=== PATIENT | female | born 1975 | race Caucasian/White ===

== ENCOUNTER 2017-10-11 08:12 | Emergency (ER) | payer OTHER ==
[~2017-10-11] VITALS: Ht 160 cm; Wt 59.0 kg
[~2017-10-11 08:12] MED LIST: ONDA4TAB21 SL; aptiom PO
[2017-10-11 08:49] VITALS: BP 119/78
== END 2017-10-11 10:09 | disposition home or self-care (01) ==
LOC: ER 08:31
DX: N64.4 Mastodynia (principal); R56.9 Unspecified convulsions; Z90.49 Acquired absence of other specified parts of digestive tract; Z98.51 Tubal ligation status; Z98.890 Other specified postprocedural states
CPT/HCPCS: 81025; 93005; 99283

== ENCOUNTER 2017-11-07 15:37 | Inpatient (IN) | payer OTHER ==
[~2017-11-07] VITALS: Ht 160 cm; Wt 62.1 kg
[2017-11-07] MEDS ORDERED: ACETAMINOPHEN 325MG TABLET PO STA (16:57)
[2017-11-07] MEDS ORDERED: SODIUM CHLORIDE 0.9% 1000ML BAG (SEPSIS BOLUS) IV ONE (17:00)
[2017-11-07] MEDS ORDERED: ACETAMINOPHEN 650MG SUPP PR ONE (17:15)
[2017-11-07] MEDS ORDERED: LORAZEPAM 2MG/ML CPJ IV ONE ×2 (17:15→19:00)
[2017-11-07 17:49] LABS: HEMATOCRIT. 39.8 % (36.0-48.0); HEMOGLOBIN. 13.3 g/dL (12.0-16.0); MEAN CORPUSCULAR HEMOGLOBIN 31.6 pg (28.0-32.0); MEAN CORPUSCULAR VOLUME 94.3 fL (81.0-99.0); MEAN PLATELET VOLUME 9.3 fl (7.4-10.4); PLATELET 157 x1000/uL (130-400); RED BLOOD CELL COUNT 4.22 mill/uL (4.2-5.4); RED CELL DISTRIBUTION WIDTH 12.8 % (11.6-14.6)
[2017-11-07 17:50] LABS: CHLORIDE 105 mEq/L (98-107)
[2017-11-07 17:51] LABS: INR 1.1; PROTHROMBIN TIME 11.8 sec (9.4-11.6)
[2017-11-07 17:57] LABS: CARBON DIOXIDE 25 mEq/L (21-32)
[2017-11-07 18:13] LABS: PLATELET ESTIMATE NORMAL
[2017-11-07 18:16] LABS: HCG SCREEN NEGATIVE
[2017-11-07] MEDS ORDERED: LEVETIRACETAM 1,000 MG in SODIUM CHLORIDE 0.9% 100 ML IV NR (18:30)
[2017-11-07] MEDS ORDERED: CEFTRIAXONE 1 G PREMIX 50 ML IV ONE (19:45)
[2017-11-07] MEDS ORDERED: IBUPROFEN 400MG TABLET PO ONE (19:45)
[2017-11-07] MEDS ORDERED: PHENYTOIN SODIUM 1,000 MG in SODIUM CHLORIDE 0.9% 100 ML IV ONE (19:45)
[2017-11-07] MEDS ORDERED: OSELTAMIVIR 75MG CAPSULE PO ONE (20:00)
[2017-11-07 21:20] LABS: CLARITY URINE CLEAR (CLEAR); COLOR URINE YELLOW (YELLOW); KETONES URINE NEGATIVE (NEGATIVE); LEUKOCYTE ESTERASE URINE NEGATIVE (NEGATIVE); NITRITE URINE NEGATIVE (NEGATIVE); OCCULT BLOOD URINE NEGATIVE (NEGATIVE); PH URINE 6.5 (4.5-8.0); PROTEIN URINE NEGATIVE (NEGATIVE); SPECIFIC GRAVITY URINE 1.009 (1.005-1.030); UROBILINOGEN URINE 0.2 E.U./dL (0.2-1.0)
[2017-11-07 22:00] VITALS: BP 109/53
[2017-11-07] MEDS ORDERED: LORAZEPAM 2MG/ML CPJ IV PRN (23:30)
[2017-11-07] MEDS: ACETAMINOPHEN 325MG TABLET PO PRN (23:35)
[2017-11-07] MEDS ORDERED: ESLI200T PO (23:56)
[2017-11-07] MEDS ORDERED: ZONI100C45 PO (23:56)
[2017-11-07] MEDS ORDERED: LORA0.5T2 PO (23:56)
[2017-11-07] MEDS ORDERED: HYDR-4001 PO (23:56)
[2017-11-08] VITALS: BP_SYST 130; BP_SYST 95; BP_DIAS 47; BP_DIAS 60
[2017-11-08] MEDS: HYDROCODONE/ACETAMINOPHEN 5/325MG TABLET PO PRN ×3 (02:19→20:11)
[2017-11-08 04:00] VITALS: BP 93/48
[2017-11-08] MEDS: PHENYTOIN SODIUM EXTENDED 100MG CAPSULE PO SCH ×3 (05:33→21:55)
[2017-11-08 08:00] VITALS: BP 97/52
[2017-11-08] MEDS ORDERED: PNEUMOCOCCAL 23-VAL P-SAC VAC 0.5 ML IM ONE (08:00)
[2017-11-08] MEDS ORDERED: ZONISAMIDE 100MG CAPSULE PO SCH (09:00)
[2017-11-08 09:10] LABS: CREATINE KINASE 342 IU/L (26-192); CREATINE KINASE MB FRACTION 1.7 ng/mL (0.5-3.6); TROPONIN I < 0.02 ng/mL (0.00-0.04)
[2017-11-08] MEDS: OSELTAMIVIR 75MG CAPSULE PO SCH ×2 (09:13→16:15)
[2017-11-08 10:16] LABS: *AMPHETAMINES SCREEN URINE NEGATIVE (NEGATIVE); *BARBITURATES SCREEN URINE NEGATIVE (NEGATIVE); *BENZODIAZEPINES SCREEN URINE NEGATIVE (NEGATIVE); *COCAINE SCREEN URINE NEGATIVE (NEGATIVE); CANNABINOID URINE SCREEN NEGATIVE (NEGATIVE); METHADONE URINE SCREEN NEGATIVE (NEGATIVE); PHENCYCLIDINE URINE SCREEN NEGATIVE (NEGATIVE)
[2017-11-08 10:26] LABS: OPIATES URINE SCREEN PRESUMTIVE POSITIVE (NEGATIVE)
[2017-11-08] MEDS: LAMOTRIGINE 25MG TABLET PO SCH (11:02)
[2017-11-08 12:00] VITALS: BP 109/66
[2017-11-08] MEDS ORDERED: ZONI100C45 PO (14:50)
[2017-11-08] MEDS ORDERED: ESLI800T PO (14:50)
[2017-11-08 16:30] LABS: CREATINE KINASE 428 IU/L (26-192); CREATINE KINASE MB FRACTION 1.4 ng/mL (0.5-3.6); TROPONIN I < 0.02 ng/mL (0.00-0.04)
[2017-11-08 16:56] VITALS: BP 107/44
[2017-11-08 20:00] VITALS: BP 115/67
[2017-11-08] MEDS ORDERED: ONDANSETRON HCL 4MG/2ML VIAL IV PRN (21:00)
[2017-11-09 00:07] LABS: CREATINE KINASE 404 IU/L (26-192); CREATINE KINASE MB FRACTION 1.1 ng/mL (0.5-3.6); TROPONIN I < 0.02 ng/mL (0.00-0.04)
[2017-11-09 04:00] VITALS: BP 104/64
[2017-11-09] MEDS: PHENYTOIN SODIUM EXTENDED 100MG CAPSULE PO SCH (06:37)
[2017-11-09 08:00] VITALS: BP 120/75
[2017-11-09] MEDS: LAMOTRIGINE 25MG TABLET PO SCH (08:47)
[2017-11-09] MEDS: OSELTAMIVIR 75MG CAPSULE PO SCH ×2 (08:47→17:23)
[2017-11-09] MEDS: ZONISAMIDE 100MG CAPSULE PO SCH (08:48)
[2017-11-09] MEDS ORDERED: TAM75 PO (11:31)
[2017-11-09] MEDS ORDERED: ZONI100C34 PO (11:31)
[2017-11-09] MEDS ORDERED: LAM25 PO (11:31)
[2017-11-09 12:30] VITALS: BP 114/66
[2017-11-09] MEDS: ACETAMINOPHEN 325MG TABLET PO PRN (12:31)
[2017-11-09 13:13] VITALS: BP 100/62
[2017-11-09 16:00] VITALS: BP 103/63
[2017-11-09] MEDS: HYDROCODONE/ACETAMINOPHEN 5/325MG TABLET PO PRN (20:05)
[2017-11-10] VITALS: BP 124/60
[2017-11-10 04:00] VITALS: BP 111/63
[2017-11-10 08:00] VITALS: BP 116/63
[2017-11-10] MEDS: LAMOTRIGINE 25MG TABLET PO SCH (08:50)
[2017-11-10] MEDS: ZONISAMIDE 100MG CAPSULE PO SCH (08:50)
[2017-11-10] MEDS: OSELTAMIVIR 75MG CAPSULE PO SCH (08:50)
[2017-11-10] MEDS: HYDROCODONE/ACETAMINOPHEN 5/325MG TABLET PO PRN (09:05)
[2017-11-10 12:00] VITALS: BP 100/62
== END 2017-11-10 15:23 | disposition home or self-care (01) | DRG 53 ==
LOC: ER 16:18 → 6WST 19:18 → EDBEDREQ 19:22 → EDBEDREQTM 19:22 → ENRESERV 20:04
PROVIDERS: ADMIT Internal Medicine; ATTEND Internal Medicine
DX: G40.419 Other generalized epilepsy and epileptic syndromes, intractable, without status epilepticus (principal); F17.210 Nicotine dependence, cigarettes, uncomplicated; J10.1 Influenza due to other identified influenza virus with other respiratory manifestations; J32.2 Chronic ethmoidal sinusitis; Z79.899 Other long term (current) drug therapy; Z88.0 Allergy status to penicillin; Z88.8 Allergy status to other drugs, medicaments and biological substances
CPT/HCPCS: 36415; 70450; 71010; 80053; 80185; 80305; 81003; 82550; 82553; 83605; 84443; 84484; 84703; 85025; 85379; 85610; 87040; 87086; 87804; 90732; 93005; 93970; 96361; 96374; 97116; 97162; 99291; J0696; J1165; J1953; J2060; J2405; J7030; J7050

== ENCOUNTER 2017-11-11 16:02 | Emergency (ER) | payer OTHER ==
[~2017-11-11] VITALS: Ht 160 cm; Wt 59.0 kg
[~2017-11-11 16:02] MED LIST changes: +ESLI800T PO; +HYDR-4001 PO; +LAM25 PO; +LORA0.5T2 PO; +TAM75 PO; +ZONI100C34 PO; -aptiom PO
[2017-11-11] MEDS ORDERED: OSELTAMIVIR 75MG CAPSULE PO ONE (19:00)
[2017-11-11 20:01] VITALS: BP 106/65
== END 2017-11-11 20:07 | disposition home or self-care (01) ==
LOC: ER 16:02
DX: J11.1 Influenza due to unidentified influenza virus with other respiratory manifestations (principal); G40.909 Epilepsy, unspecified, not intractable, without status epilepticus; Z86.73 Personal history of transient ischemic attack (TIA), and cerebral infarction without residual deficits; Z96.9 Presence of functional implant, unspecified; Z88.0 Allergy status to penicillin; Z88.8 Allergy status to other drugs, medicaments and biological substances
CPT/HCPCS: 99283

== ENCOUNTER 2018-08-22 08:12 | Inpatient (IN) | payer OTHER ==
[~2018-08-22] VITALS: Ht 160 cm; Wt 64.0 kg
[2018-08-22] MEDS ORDERED: LORAZEPAM 2MG/ML CPJ ONE (08:56)
[2018-08-22] MEDS ORDERED: LORAZEPAM 2MG/ML CPJ IV ONE (10:30)
[2018-08-22] MEDS ORDERED: KETOROLAC 30MG/ML VIAL IM ONE (11:00)
[2018-08-22] MEDS ORDERED: ONDANSETRON HCL 4MG/2ML INJ IM ONE (11:00)
[2018-08-22] MEDS ORDERED: ACETAMINOPHEN 325MG TABLET PO ONE (12:00)
[2018-08-22] MEDS ORDERED: SODIUM CHLORIDE 0.9% 1,000 ML IV ONE (12:30)
[2018-08-22 14:09] LABS: BASOPHILS % 0.6 % (0.0-2.0); EOSINOPHILS % 0.7 % (0.0-5.0); HEMATOCRIT. 38.5 % (36.0-48.0); HEMOGLOBIN. 13.1 g/dL (12.0-16.0); LYMPHOCYTES % 47.6 % (20.0-50.0); MEAN CORPUSCULAR HEMOGLOBIN 32.5 pg (28.0-32.0); MEAN CORPUSCULAR VOLUME 95.6 fL (81.0-99.0); MEAN PLATELET VOLUME 9.2 fl (7.4-10.4); MONOCYTES % 8.5 % (2.0-8.0); NEUTROPHILS % 42.6 % (40.0-76.0); PLATELET 178 x1000/uL (130-400); RED BLOOD CELL COUNT 4.03 mill/uL (4.2-5.4); RED CELL DISTRIBUTION WIDTH 12.4 % (11.6-14.6)
[2018-08-22 14:19] LABS: CHLORIDE 110 mEq/L (98-107)
[2018-08-22] MEDS ORDERED: LORAZEPAM 2MG/ML CPJ IV PRN (15:15)
[2018-08-22] MEDS ORDERED: DOCUSATE SODIUM 100MG CAPSULE PO PRN (15:15)
[2018-08-22] MEDS ORDERED: IPRATROPIUM/ALBUTEROL 0.5-3(2.5)MG/3ML NEB INH PRN (15:15)
[2018-08-22] MEDS ORDERED: CLONIDINE 0.1MG TABLET PO PRN (15:15)
[2018-08-22] MEDS ORDERED: PIPERACILLIN/TAZ 3.375G PREMIX 50 ML IV SCH (15:15)
[2018-08-22] MEDS ORDERED: MAGNESIUM/ALUMINUM HYDROXIDE/SIMETHICONE 30ML UDC PO PRN (15:15)
[2018-08-22] MEDS ORDERED: ACETAMINOPHEN 325MG TABLET PO PRN (15:15)
[2018-08-22] MEDS ORDERED: GUAIFENESIN 200MG/10ML SUGAR FREE UDC PO PRN (15:15)
[2018-08-22] MEDS ORDERED: HYDROCODONE/ACETAMINOPHEN 5/325MG TABLET PO PRN (15:15)
[2018-08-22 15:39] LABS: CLARITY URINE CLEAR (CLEAR); COLOR URINE YELLOW (YELLOW); KETONES URINE NEGATIVE (NEGATIVE); LEUKOCYTE ESTERASE URINE NEGATIVE (NEGATIVE); NITRITE URINE NEGATIVE (NEGATIVE); OCCULT BLOOD URINE NEGATIVE (NEGATIVE); PROTEIN URINE NEGATIVE (NEGATIVE); SPECIFIC GRAVITY URINE 1.007 (1.005-1.030); UROBILINOGEN URINE 0.2 E.U./dL (0.2-1.0)
[2018-08-22 15:49] LABS: *AMPHETAMINES SCREEN URINE NEGATIVE (NEGATIVE); *BARBITURATES SCREEN URINE NEGATIVE (NEGATIVE); *BENZODIAZEPINES SCREEN URINE NEGATIVE (NEGATIVE); *COCAINE SCREEN URINE NEGATIVE (NEGATIVE)
[2018-08-22 15:50] LABS: CANNABINOID URINE SCREEN NEGATIVE (NEGATIVE); METHADONE URINE SCREEN NEGATIVE (NEGATIVE); OPIATES URINE SCREEN NEGATIVE (NEGATIVE); PHENCYCLIDINE URINE SCREEN NEGATIVE (NEGATIVE)
[2018-08-22 16:03] LABS: CHLORIDE 113 mEq/L (98-107)
[2018-08-23 01:06] LABS: CREATINE KINASE 97 IU/L (26-192)
[2018-08-23 06:55] LABS: BASOPHILS % 0.8 % (0.0-2.0); EOSINOPHILS % 1.4 % (0.0-5.0); HEMATOCRIT. 37.2 % (36.0-48.0); HEMOGLOBIN. 12.4 g/dL (12.0-16.0); LYMPHOCYTES % 41.8 % (20.0-50.0); MEAN CORPUSCULAR HEMOGLOBIN 32.3 pg (28.0-32.0); MEAN CORPUSCULAR VOLUME 96.6 fL (81.0-99.0); MEAN PLATELET VOLUME 9.1 fl (7.4-10.4); MONOCYTES % 9.3 % (2.0-8.0); NEUTROPHILS % 46.7 % (40.0-76.0); PLATELET 166 x1000/uL (130-400); RED BLOOD CELL COUNT 3.85 mill/uL (4.2-5.4); RED CELL DISTRIBUTION WIDTH 12.3 % (11.6-14.6)
[2018-08-23 07:16] LABS: CREATINE KINASE 80 IU/L (26-192); HDL CHOLESTEROL 39 mg/dL (40-59); LDL CHOLESTEROL 91 mg/dL (5-100)
[2018-08-23 07:21] LABS: CREATINE KINASE MB FRACTION 1.1 ng/mL (0.5-3.6)
[2018-08-23] MEDS ORDERED: SUMA100T16 PO (14:38)
[2018-08-23] MEDS ORDERED: PHEN300C6 PO (14:38)
[2018-08-23] MEDS ORDERED: TOPI25CA13 PO (14:40)
[2018-08-23] MEDS ORDERED: ESLI400T PO (14:45)
[2018-08-23 15:00] VITALS: BP 107/61
[2018-08-23] MEDS ORDERED: LORAZEPAM 2MG/ML CPJ IV PRN ×2 (16:00→23:15)
[2018-08-23] MEDS: ZONISAMIDE 100MG CAPSULE PO SCH (16:00)
[2018-08-23] MEDS ORDERED: LAMOTRIGINE 25MG TABLET PO SCH (16:00)
[2018-08-23] MEDS: PHENYTOIN SODIUM EXTENDED 100MG CAPSULE PO SCH (16:00)
[2018-08-23] MEDS ORDERED: TOPIRAMATE 25 MG PO SCH (16:15)
[2018-08-23] MEDS: TOPIRAMATE 25MG TABLET PO SCH (17:51)
[2018-08-23] MEDS: NICOTINE 7MG PATCH TD SCH (17:52)
[2018-08-23 20:00] VITALS: BP 116/56
[2018-08-23] MEDS: ONDANSETRON HCL 4MG/2ML INJ IV PRN (21:50)
[2018-08-24] VITALS (8 sets, daily range): BP systolic 91–122; BP diastolic 41–64
[2018-08-24] MEDS: ZONISAMIDE 100MG CAPSULE PO SCH (08:57)
[2018-08-24] MEDS: PHENYTOIN SODIUM EXTENDED 100MG CAPSULE PO SCH ×2 (08:58→18:11)
[2018-08-24] MEDS: TOPIRAMATE 25MG TABLET PO SCH (08:58)
[2018-08-24] MEDS: NICOTINE 7MG PATCH TD SCH (08:58)
[2018-08-24] MEDS: HYDROCODONE/ACETAMINOPHEN 5/325MG TABLET PO PRN (11:41)
[2018-08-24] MEDS: MORPHINE SULFATE 4 MG/ML CPJ (NOT FOR IM USE) IV PRN (13:57)
[2018-08-24] MEDS: LORAZEPAM 2MG/ML CPJ IV PRN (15:48)
[2018-08-24] MEDS: ENOXAPARIN 40MG/0.4ML SYR SUBCUT SCH (18:11)
[2018-08-25] VITALS (8 sets, daily range): BP systolic 95–106; BP diastolic 44–63
[2018-08-25 00:12] LABS: HCG SCREEN NEGATIVE
[2018-08-25] MEDS: TOPIRAMATE 25MG TABLET PO SCH ×2 (09:24→18:17)
[2018-08-25] MEDS: PHENYTOIN SODIUM EXTENDED 100MG CAPSULE PO SCH ×2 (09:24→17:47)
[2018-08-25] MEDS: ZONISAMIDE 100MG CAPSULE PO SCH (09:24)
[2018-08-25] MEDS: NICOTINE 7MG PATCH TD SCH (09:25)
[2018-08-25] MEDS: HYDROCODONE/ACETAMINOPHEN 5/325MG TABLET PO PRN (09:43)
[2018-08-25] MEDS: LORAZEPAM 2MG/ML CPJ IV PRN ×2 (13:41→21:55)
[2018-08-25] MEDS ORDERED: PHEN100C4 PO (14:31)
[2018-08-25] MEDS ORDERED: TOPA25 PO (14:31)
[2018-08-25] MEDS: ENOXAPARIN 40MG/0.4ML SYR SUBCUT SCH (16:00)
[2018-08-25] MEDS ORDERED: LORAZEPAM 2MG/ML CPJ IM PRN (23:15)
[2018-08-26] VITALS (8 sets, daily range): BP systolic 96–107; BP diastolic 37–60
[2018-08-26 07:33] LABS: BASOPHILS % 0.7 % (0.0-2.0); EOSINOPHILS % 1.7 % (0.0-5.0); HEMATOCRIT. 39.3 % (36.0-48.0); HEMOGLOBIN. 13.6 g/dL (12.0-16.0); LYMPHOCYTES % 42.6 % (20.0-50.0); MEAN CORPUSCULAR HEMOGLOBIN 32.9 pg (28.0-32.0); MEAN CORPUSCULAR VOLUME 95.3 fL (81.0-99.0); MEAN PLATELET VOLUME 9.6 fl (7.4-10.4); MONOCYTES % 7.9 % (2.0-8.0); NEUTROPHILS % 47.1 % (40.0-76.0); PLATELET 187 x1000/uL (130-400); RED BLOOD CELL COUNT 4.13 mill/uL (4.2-5.4); RED CELL DISTRIBUTION WIDTH 12.5 % (11.6-14.6)
[2018-08-26 08:22] LABS: CHLORIDE 109 mEq/L (98-107)
[2018-08-26] MEDS: ZONISAMIDE 100MG CAPSULE PO SCH (09:08)
[2018-08-26] MEDS: PHENYTOIN SODIUM EXTENDED 100MG CAPSULE PO SCH ×2 (09:09→17:25)
[2018-08-26] MEDS: TOPIRAMATE 25MG TABLET PO SCH ×2 (09:09→17:25)
[2018-08-26] MEDS: NICOTINE 7MG PATCH TD SCH (09:10)
[2018-08-26] MEDS: ENOXAPARIN 40MG/0.4ML SYR SUBCUT SCH (16:00)
[2018-08-26] MEDS: ONDANSETRON HCL 4MG/2ML INJ IV PRN (17:25)
[2018-08-26] MEDS: MORPHINE SULFATE 4 MG/ML CPJ (NOT FOR IM USE) IV PRN (17:25)
== END 2018-08-26 18:30 | disposition home or self-care (01) | DRG 53 ==
LOC: ER 09:37 → ENRESERV 13:16 → CANRESERV 13:16 → EDBEDREQSVC 13:55 → ENRESERV 08-23 13:13 → 7WST 08-23 15:33
PROVIDERS: ADMIT Internal Medicine; ATTEND Internal Medicine
DX: G40.919 Epilepsy, unspecified, intractable, without status epilepticus (principal); E87.8 Other disorders of electrolyte and fluid balance, not elsewhere classified; F17.200 Nicotine dependence, unspecified, uncomplicated; Z91.14 Patient's other noncompliance with medication regimen; Z91.19 Patient's noncompliance with other medical treatment and regimen; Z88.0 Allergy status to penicillin; Z95.0 Presence of cardiac pacemaker; Z71.6 Tobacco abuse counseling
CPT/HCPCS: 36415; 70450; 73030; 80048; 80053; 80061; 80185; 80305; 81003; 82550; 82553; 82962; 83735; 84443; 84484; 84703; 85025; 93005; 93970; 96360; 96361; 96372; 97116; 97162; 99285; C1893; J1650; J1885; J2060; J2270; J2405; J7030

== ENCOUNTER 2018-11-28 03:26 | Emergency (ER) | payer OTHER ==
[~2018-11-28] VITALS: Ht 160 cm; Wt 57.0 kg
[~2018-11-28 03:26] MED LIST changes: +ESLI400T PO; -ESLI800T PO; -HYDR-4001 PO; -LAM25 PO; -LORA0.5T2 PO; +PHEN100C4 PO; +SUMA100T16 PO; +TOPA25 PO
[2018-11-28 04:34] LABS: CLARITY URINE CLEAR (CLEAR); COLOR URINE YELLOW (YELLOW); KETONES URINE NEGATIVE (NEGATIVE); LEUKOCYTE ESTERASE URINE NEGATIVE (NEGATIVE); NITRITE URINE NEGATIVE (NEGATIVE); OCCULT BLOOD URINE NEGATIVE (NEGATIVE); PROTEIN URINE NEGATIVE (NEGATIVE); SPECIFIC GRAVITY URINE 1.014 (1.005-1.030); UROBILINOGEN URINE 0.2 E.U./dL (0.2-1.0)
[2018-11-28 04:42] LABS: *AMPHETAMINES SCREEN URINE NEGATIVE (NEGATIVE)
[2018-11-28 04:43] LABS: *BARBITURATES SCREEN URINE NEGATIVE (NEGATIVE); *BENZODIAZEPINES SCREEN URINE NEGATIVE (NEGATIVE); *COCAINE SCREEN URINE NEGATIVE (NEGATIVE); METHADONE URINE SCREEN NEGATIVE (NEGATIVE); OPIATES URINE SCREEN NEGATIVE (NEGATIVE); PHENCYCLIDINE URINE SCREEN NEGATIVE (NEGATIVE)
[2018-11-28 04:44] LABS: BASOPHILS % 0.7 % (0.0-2.0); EOSINOPHILS % 0.8 % (0.0-5.0); HEMATOCRIT. 38.3 % (36.0-48.0); LYMPHOCYTES % 28.3 % (20.0-50.0); MEAN CORPUSCULAR HEMOGLOBIN 32.6 pg (28.0-32.0); MEAN CORPUSCULAR VOLUME 96.2 fL (81.0-99.0); MONOCYTES % 8.2 % (2.0-8.0); PLATELET 163 x1000/uL (130-400); RED BLOOD CELL COUNT 3.98 mill/uL (4.2-5.4); RED CELL DISTRIBUTION WIDTH 12.9 % (11.6-14.6)
[2018-11-28 04:44] LABS: CANNABINOID URINE SCREEN NEGATIVE (NEGATIVE)
[2018-11-28 04:46] LABS: CHLORIDE 110 mEq/L (98-107)
[2018-11-28 04:50] LABS: ETHANOL BLOOD < 10 mg/dL
[2018-11-28 05:56] VITALS: BP 103/55
== END 2018-11-28 06:00 | disposition home or self-care (01) ==
LOC: ER 03:26
DX: G40.909 Epilepsy, unspecified, not intractable, without status epilepticus (principal); F17.200 Nicotine dependence, unspecified, uncomplicated; Z91.14 Patient's other noncompliance with medication regimen; Z95.0 Presence of cardiac pacemaker; Z88.0 Allergy status to penicillin
CPT/HCPCS: 36415; 80053; 80185; 80305; 81003; 81025; 85025; 99283; G0482

== ENCOUNTER 2019-08-30 15:55 | Emergency (ER) | payer MEDICAID, OTHER ==
[~2019-08-30] VITALS: Ht 160 cm; Wt 61.0 kg
[2019-08-30 16:03] VITALS: BP 116/53
== END 2019-08-30 16:58 | disposition left against medical advice (07) ==
LOC: ER 15:55
DX: Z53.21 Procedure and treatment not carried out due to patient leaving prior to being seen by health care provider (principal)

== ENCOUNTER 2020-05-15 11:43 | Emergency (ER) | payer MEDICAID ==
[~2020-05-15] VITALS: Ht 160 cm; Wt 50.0 kg
[2020-05-15 12:45] VITALS: BP 108/58
[2020-05-15] MEDS ORDERED: PHENYTOIN 100 MG/4 ML UDC PO NR (15:00)
== END 2020-05-15 15:55 | disposition home or self-care (01) ==
LOC: ER 11:43
DX: G40.909 Epilepsy, unspecified, not intractable, without status epilepticus (principal); Z91.14 Patient's other noncompliance with medication regimen; Z88.2 Allergy status to sulfonamides; Z88.5 Allergy status to narcotic agent; Z88.0 Allergy status to penicillin
CPT/HCPCS: 36415; 80185; 99283

== ENCOUNTER 2020-06-03 10:26 | Inpatient (IN) | payer MEDICAID ==
[~2020-06-03] VITALS: Ht 160 cm; Wt 45.8 kg
[2020-06-03] MEDS ORDERED: SODIUM CHLORIDE 0.9% 1,000 ML IV ONE (10:51)
[2020-06-03] MEDS ORDERED: KETOROLAC 30MG/ML VIAL IV ONE (11:00)
[2020-06-03] MEDS ORDERED: BACITRACIN ZINC OINT UDPKT TOP ONE (11:00)
[2020-06-03] MEDS ORDERED: LIDOCAINE 1%/EPI 1:100,000 10 ML VIAL IJ ONE (11:00)
[2020-06-03] MEDS ORDERED: LIDOCAINE HCL/EPINEPHRINE 1%-EPI 1:100,000 20 ML VIAL MC ONE (11:15)
[2020-06-03 11:16] LABS: BASOPHILS % 0.5 % (0.0-2.0); EOSINOPHILS % 0.4 % (0.0-5.0); HEMATOCRIT. 42.1 % (36.0-48.0); HEMOGLOBIN. 14.3 g/dL (12.0-16.0); LYMPHOCYTES % 22.7 % (20.0-50.0); MEAN CORPUSCULAR HEMOGLOBIN 33.3 pg (28.0-32.0); MEAN CORPUSCULAR VOLUME 97.8 fL (81.0-99.0); MEAN PLATELET VOLUME 8.6 fl (7.4-10.4); MONOCYTES % 8.4 % (2.0-8.0); PLATELET 188 x1000/uL (130-400); RED CELL DISTRIBUTION WIDTH 13.5 % (11.6-14.6)
[2020-06-03 11:21] LABS: CHLORIDE 108 mEq/L (98-107)
[2020-06-03 11:25] LABS: ETHANOL BLOOD < 10 mg/dL
[2020-06-03 11:27] LABS: D-DIMER 0.74 mg/L FEU (<0.50); INR 1.1; PARTIAL THROMBOPLASTIN TIME 24.2 sec (23.4-31.0); PROTHROMBIN TIME 11.6 sec (9.6-11.0)
[2020-06-03 11:45] LABS: HCG SCREEN NEGATIVE
[2020-06-03] MEDS ORDERED: PHENYTOIN SODIUM 1,000 MG in SODIUM CHLORIDE 0.9% 100 ML IV ONE (12:30)
[2020-06-03] MEDS ORDERED: LORAZEPAM 2MG/ML CPJ IV ONE (12:30)
[2020-06-03 12:54] LABS: *BENZODIAZEPINES SCREEN URINE NEGATIVE (NEGATIVE); *COCAINE SCREEN URINE NEGATIVE (NEGATIVE); METHADONE URINE SCREEN NEGATIVE (NEGATIVE); OPIATES URINE SCREEN NEGATIVE (NEGATIVE)
[2020-06-03 12:55] LABS: PHENCYCLIDINE URINE SCREEN NEGATIVE (NEGATIVE)
[2020-06-03 13:01] LABS: *BARBITURATES SCREEN URINE NEGATIVE (NEGATIVE)
[2020-06-03 13:03] LABS: *AMPHETAMINES SCREEN URINE NEGATIVE (NEGATIVE); CANNABINOID URINE SCREEN NEGATIVE (NEGATIVE)
[2020-06-03] MEDS ORDERED: IPRATROPIUM/ALBUTEROL 0.5-3(2.5)MG/3ML NEB HHN PRN (14:00)
[2020-06-03] MEDS ORDERED: CLONIDINE 0.1MG TABLET PO PRN (14:00)
[2020-06-03 14:34] LABS: PHOSPHORUS 2.4 mg/dL (2.5-4.9)
[2020-06-03] MEDS ORDERED: ASPIRIN 81MG TABLET PO ONE (16:00)
[2020-06-03 17:55] VITALS: BP 105/58
[2020-06-03] MEDS: PHENYTOIN SODIUM EXTENDED 100MG CAPSULE PO SCH ×2 (19:17→23:43)
[2020-06-03] MEDS ORDERED: CLON1TAB23 PO (19:41)
[2020-06-03] MEDS ORDERED: NAPR500T7 PO (19:44)
[2020-06-03] MEDS ORDERED: BENZ100C86 PO (19:45)
[2020-06-03 19:48] VITALS: BP 105/58
[2020-06-03 20:00] VITALS: BP 121/63
[2020-06-03] MEDS: LORAZEPAM 2MG/ML CPJ IV PRN (21:50)
[2020-06-03] MEDS: ACETAMINOPHEN 325MG TABLET PO PRN (21:50)
[2020-06-03] MEDS: DIPHENHYDRAMINE 50MG/ML VIAL IV PRN (22:05)
[2020-06-03 23:22] VITALS: BP 117/60
[2020-06-04 04:00] VITALS: BP 100/50
[2020-06-04] MEDS: PHENYTOIN SODIUM EXTENDED 100MG CAPSULE PO SCH ×3 (06:00→17:49)
[2020-06-04 07:17] LABS: BASOPHILS % 0.7 % (0.0-2.0); EOSINOPHILS % 0.6 % (0.0-5.0); HEMATOCRIT. 33.8 % (36.0-48.0); HEMOGLOBIN. 11.6 g/dL (12.0-16.0); LYMPHOCYTES % 32.3 % (20.0-50.0); MEAN CORPUSCULAR HEMOGLOBIN 33.3 pg (28.0-32.0); MEAN PLATELET VOLUME 8.9 fl (7.4-10.4); MONOCYTES % 9.9 % (2.0-8.0); NEUTROPHILS % 56.5 % (40.0-76.0); PLATELET 145 x1000/uL (130-400); RED BLOOD CELL COUNT 3.48 mill/uL (4.2-5.4); RED CELL DISTRIBUTION WIDTH 13.4 % (11.6-14.6)
[2020-06-04 07:32] LABS: CHLORIDE 112 mEq/L (98-107)
[2020-06-04 07:54] LABS: LDL CHOLESTEROL 76 mg/dL (5-100)
[2020-06-04 07:55] LABS: HDL CHOLESTEROL 48 mg/dL (40-59)
[2020-06-04 08:00] VITALS: BP 106/63
[2020-06-04] MEDS: ZONISAMIDE 100MG CAPSULE PO SCH (09:14)
[2020-06-04] MEDS: TOPIRAMATE 25MG TABLET PO SCH ×2 (09:15→21:25)
[2020-06-04 12:00] VITALS: BP 114/67
[2020-06-04 16:00] VITALS: BP 100/52
[2020-06-04] MEDS: LORAZEPAM 2MG/ML CPJ IV PRN (19:22)
[2020-06-04 20:00] VITALS: BP 125/64
[2020-06-05] VITALS: BP 104/57
[2020-06-05] MEDS: PHENYTOIN SODIUM EXTENDED 100MG CAPSULE PO SCH ×4 (00:34→17:23)
[2020-06-05 04:00] VITALS: BP 110/54
[2020-06-05] MEDS: ACETAMINOPHEN 325MG TABLET PO PRN ×3 (04:31→13:13)
[2020-06-05] MEDS: TOPIRAMATE 25MG TABLET PO SCH ×2 (07:55→20:52)
[2020-06-05] MEDS: ZONISAMIDE 100MG CAPSULE PO SCH (07:55)
[2020-06-05 08:00] VITALS: BP 107/54
[2020-06-05] MEDS: HYDROCODONE/ACETAMINOPHEN 5/325MG TABLET PO PRN (10:45)
[2020-06-05 12:00] VITALS: BP 102/46
[2020-06-05 15:41] LABS: HEMATOCRIT 37.3 % (36.0-48.0); HEMOGLOBIN 12.7 g/dL (12.0-16.0); MEAN CORPUSCULAR HEMOGLOBIN 33.5 pg (28.0-32.0); MEAN CORPUSCULAR VOLUME 98.2 fL (81.0-99.0); PLATELET 159 x1000/uL (130-400); RED CELL DISTRIBUTION WIDTH 13.3 % (11.6-14.6)
[2020-06-05 15:59] LABS: TOTAL IRON BINDING CAPACITY 245 ug/dL (250-450)
[2020-06-05 16:00] VITALS: BP 109/56
[2020-06-05 19:30] LABS: FOLIC ACID (FOLATE) SERUM 3.2 ng/mL (>5.38)
[2020-06-05 20:00] VITALS: BP 108/88
[2020-06-06] VITALS: BP 98/58
[2020-06-06] MEDS: PHENYTOIN SODIUM EXTENDED 100MG CAPSULE PO SCH ×4 (00:41→17:11)
[2020-06-06 04:00] VITALS: BP 103/53
[2020-06-06] MEDS: HYDROCODONE/ACETAMINOPHEN 5/325MG TABLET PO PRN (07:06)
[2020-06-06 08:00] VITALS: BP 107/65
[2020-06-06] MEDS: TOPIRAMATE 25MG TABLET PO SCH ×2 (09:08→20:23)
[2020-06-06] MEDS: ZONISAMIDE 100MG CAPSULE PO SCH (09:08)
[2020-06-06] MEDS ORDERED: LACTULOSE 20G/30ML UDC PO NR (10:30)
[2020-06-06 12:00] VITALS: BP 123/78
[2020-06-06] MEDS: FOLIC ACID 1MG TABLET PO SCH (15:21)
[2020-06-06] MEDS ORDERED: DIPHENHYDRAMINE 12.5MG/5ML UDC PO PRN (15:30)
[2020-06-06 16:00] VITALS: BP 107/85
[2020-06-06] MEDS: FERROUS SULFATE 325MG TABLET PO SCH (17:11)
[2020-06-06 20:00] VITALS: BP 120/70
[2020-06-06] MEDS: ACETAMINOPHEN 325MG TABLET PO PRN (20:23)
[2020-06-07] VITALS: BP 105/66
[2020-06-07] MEDS: PHENYTOIN SODIUM EXTENDED 100MG CAPSULE PO SCH ×4 (00:04→17:39)
[2020-06-07 04:00] VITALS: BP 129/69
[2020-06-07 06:50] LABS: BASOPHILS % 0.6 % (0.0-2.0); EOSINOPHILS % 0.7 % (0.0-5.0); HEMATOCRIT. 39.9 % (36.0-48.0); HEMOGLOBIN. 13.8 g/dL (12.0-16.0); LYMPHOCYTES % 43.6 % (20.0-50.0); MEAN CORPUSCULAR HEMOGLOBIN 33.3 pg (28.0-32.0); MEAN CORPUSCULAR VOLUME 96.1 fL (81.0-99.0); MEAN PLATELET VOLUME 8.8 fl (7.4-10.4); MONOCYTES % 11.9 % (2.0-8.0); NEUTROPHILS % 43.2 % (40.0-76.0); PLATELET 178 x1000/uL (130-400); RED BLOOD CELL COUNT 4.15 mill/uL (4.2-5.4); RED CELL DISTRIBUTION WIDTH 13.2 % (11.6-14.6)
[2020-06-07 07:03] LABS: CHLORIDE 107 mEq/L (98-107)
[2020-06-07 07:46] VITALS: BP 122/58
[2020-06-07] MEDS: FERROUS SULFATE 325MG TABLET PO SCH ×3 (09:18→17:39)
[2020-06-07] MEDS: ZONISAMIDE 100MG CAPSULE PO SCH (09:18)
[2020-06-07] MEDS: FOLIC ACID 1MG TABLET PO SCH (09:18)
[2020-06-07] MEDS: TOPIRAMATE 25MG TABLET PO SCH (09:18)
[2020-06-07] MEDS: HYDROCODONE/ACETAMINOPHEN 5/325MG TABLET PO PRN (09:46)
[2020-06-07 11:57] VITALS: BP 102/58
[2020-06-07] MEDS: ONDANSETRON HCL 4MG/2ML INJ IV PRN (15:33)
[2020-06-07 16:00] VITALS: BP 112/66
[2020-06-07] MEDS ORDERED: LORAZEPAM 2MG/ML CPJ IM NR (16:15)
[2020-06-07] MEDS: MAGNESIUM/ALUMINUM HYDROXIDE/SIMETHICONE 30ML UDC PO PRN (17:40)
[2020-06-07] MEDS: VISCOUS LIDOCAINE 2% 15 ML UDC PO PRN (17:41)
[2020-06-07 20:00] VITALS: BP 120/70
[2020-06-07] MEDS: TOPIRAMATE 100MG TABLET PO SCH (20:10)
[2020-06-07] MEDS: LEVETIRACETAM 500MG TABLET PO SCH (20:10)
[2020-06-08] VITALS: BP 105/69
[2020-06-08] MEDS: PHENYTOIN SODIUM EXTENDED 100MG CAPSULE PO SCH ×4 (00:19→17:35)
[2020-06-08 04:00] VITALS: BP 101/62
[2020-06-08 08:00] VITALS: BP 105/67
[2020-06-08] MEDS: ZONISAMIDE 100MG CAPSULE PO SCH (09:34)
[2020-06-08] MEDS: TOPIRAMATE 100MG TABLET PO SCH ×3 (09:34→21:55)
[2020-06-08] MEDS: FOLIC ACID 1MG TABLET PO SCH (09:34)
[2020-06-08] MEDS: LEVETIRACETAM 500MG TABLET PO SCH ×2 (09:34→21:00)
[2020-06-08] MEDS: FERROUS SULFATE 325MG TABLET PO SCH ×3 (09:35→17:35)
[2020-06-08] MEDS: ONDANSETRON HCL 4MG/2ML INJ IV PRN ×2 (10:12→21:44)
[2020-06-08] MEDS: LORAZEPAM 2MG/ML CPJ IV PRN (10:12)
[2020-06-08 11:56] VITALS: BP 103/61
[2020-06-08 16:00] VITALS: BP 104/63
[2020-06-08] MEDS: VISCOUS LIDOCAINE 2% 15 ML UDC PO PRN (17:36)
[2020-06-08] MEDS: DIPHENHYDRAMINE 50MG/ML VIAL IV PRN (17:36)
[2020-06-08] MEDS: MAGNESIUM/ALUMINUM HYDROXIDE/SIMETHICONE 30ML UDC PO PRN (17:36)
== END 2020-06-09 01:25 | disposition short-term general hospital (02) | DRG 53 ==
LOC: ER 10:39 → 8WST 13:39 → EDBEDREQTM 13:44 → EDBEDREQ 13:44 → ENRESERV 16:14
PROVIDERS: ADMIT Internal Medicine; ATTEND Internal Medicine
PROC: 0HQ1XZZ Repair Face Skin, External Approach (ICD-10-PCS; principal; 2020-06-03)
PROC: 4A00X4Z Measurement of Central Nervous Electrical Activity, External Approach (ICD-10-PCS; 2020-06-05)
DX: G40.409 Other generalized epilepsy and epileptic syndromes, not intractable, without status epilepticus (principal); S01.01XA Laceration without foreign body of scalp, initial encounter; I10 Essential (primary) hypertension; F17.200 Nicotine dependence, unspecified, uncomplicated; D64.9 Anemia, unspecified; E53.8 Deficiency of other specified B group vitamins; S80.212A Abrasion, left knee, initial encounter; W18.39XA Other fall on same level, initial encounter; Y93.89 Activity, other specified; Y92.89 Other specified places as the place of occurrence of the external cause; Y99.8 Other external cause status; Z90.49 Acquired absence of other specified parts of digestive tract; Z95.0 Presence of cardiac pacemaker; Z88.6 Allergy status to analgesic agent; Z88.0 Allergy status to penicillin; Z88.2 Allergy status to sulfonamides; Z88.8 Allergy status to other drugs, medicaments and biological substances; Z79.899 Other long term (current) drug therapy; Z98.51 Tubal ligation status; Z91.14 Patient's other noncompliance with medication regimen; E83.39 Other disorders of phosphorus metabolism; E87.8 Other disorders of electrolyte and fluid balance, not elsewhere classified
CPT/HCPCS: 36415; 71045; 73560; 78580; 80048; 80053; 80061; 80185; 80305; 80320; 82140; 82607; 82728; 82746; 83540; 83550; 83735; 84100; 84443; 84484; 84703; 85025; 85027; 85379; 93005; 93306; 93970; 96365; 99285; J1165; J1200; J1885; J2060; J2405; J3490; J7030; J7050; Q0163; G0480

== ENCOUNTER 2020-06-09 01:58 | Inpatient (IN) | payer MEDICAID, OTHER ==
[~2020-06-09] VITALS: Ht 157.5 cm; Wt 45.8 kg
[~2020-06-09 01:58] MED LIST changes: +BENZ100C86 PO; +CLON1TAB23 PO; +NAPR500T7 PO
[2020-06-09] MEDS ORDERED: SODIUM CHLORIDE 0.9% 500 ML IV ONE (02:15)
[2020-06-09 02:46] LABS: BASOPHILS % 1.3 % (0.0-2.0); EOSINOPHILS % 0.3 % (0.0-5.0); HEMATOCRIT. 49.8 % (36.0-48.0); HEMOGLOBIN. 17.1 g/dL (12.0-16.0); LYMPHOCYTES % 35.9 % (20.0-50.0); MEAN CORPUSCULAR HEMOGLOBIN 33.2 pg (28.0-32.0); MEAN CORPUSCULAR VOLUME 96.6 fL (81.0-99.0); MEAN PLATELET VOLUME 8.6 fl (7.4-10.4); MONOCYTES % 10.1 % (2.0-8.0); NEUTROPHILS % 52.4 % (40.0-76.0); PLATELET 200 x1000/uL (130-400); RED BLOOD CELL COUNT 5.15 mill/uL (4.2-5.4); RED CELL DISTRIBUTION WIDTH 13.5 % (11.6-14.6)
[2020-06-09 02:52] LABS: CHLORIDE 106 mEq/L (98-107)
[2020-06-09 06:36] LABS: CLARITY URINE CLEAR (CLEAR); COLOR URINE YELLOW (YELLOW); KETONES URINE NEGATIVE (NEGATIVE); LEUKOCYTE ESTERASE URINE NEGATIVE (NEGATIVE); NITRITE URINE NEGATIVE (NEGATIVE); OCCULT BLOOD URINE 3+ (NEGATIVE); PROTEIN URINE TRACE (NEGATIVE); SPECIFIC GRAVITY URINE 1.026 (1.005-1.030)
[2020-06-09 06:52] LABS: *AMPHETAMINES SCREEN URINE NEGATIVE (NEGATIVE); *BARBITURATES SCREEN URINE NEGATIVE (NEGATIVE); *COCAINE SCREEN URINE NEGATIVE (NEGATIVE)
[2020-06-09 06:53] LABS: *BENZODIAZEPINES SCREEN URINE NEGATIVE (NEGATIVE); CANNABINOID URINE SCREEN NEGATIVE (NEGATIVE); METHADONE URINE SCREEN NEGATIVE (NEGATIVE); OPIATES URINE SCREEN NEGATIVE (NEGATIVE); PHENCYCLIDINE URINE SCREEN NEGATIVE (NEGATIVE)
[2020-06-09] MEDS ORDERED: CLONIDINE 0.1MG TABLET PO PRN (08:45)
[2020-06-09] MEDS ORDERED: PHENYTOIN SODIUM EXTENDED 100MG CAPSULE PO SCH (08:45)
[2020-06-09] MEDS ORDERED: ACETAMINOPHEN 325MG TABLET PO PRN (08:45)
[2020-06-09] MEDS ORDERED: ONDANSETRON HCL 4MG/2ML INJ IV PRN (08:45)
[2020-06-09] MEDS: LEVETIRACETAM 500MG TABLET PO SCH ×2 (10:05→20:14)
[2020-06-09] MEDS: LORAZEPAM 2MG/ML CPJ IV PRN ×3 (10:06→20:46)
[2020-06-09] MEDS: ENOXAPARIN 40MG/0.4ML SYR SUBCUT SCH (10:12)
[2020-06-09] MEDS: TOPIRAMATE 100MG TABLET PO SCH ×2 (10:12→20:14)
[2020-06-09 10:30] VITALS: BP 107/59
[2020-06-09 12:00] VITALS: BP 107/59
[2020-06-09] MEDS: ZONISAMIDE 100MG CAPSULE PO SCH (12:48)
[2020-06-09 16:00] VITALS: BP 116/67
[2020-06-09 20:00] VITALS: BP 103/56
[2020-06-10 00:15] VITALS: BP 107/62
[2020-06-10 04:00] VITALS: BP 108/59
[2020-06-10 08:00] VITALS: BP 104/69
[2020-06-10] MEDS: ENOXAPARIN 40MG/0.4ML SYR SUBCUT SCH (08:36)
[2020-06-10] MEDS: ZONISAMIDE 100MG CAPSULE PO SCH (08:37)
[2020-06-10] MEDS: LEVETIRACETAM 500MG TABLET PO SCH ×2 (08:38→20:50)
[2020-06-10] MEDS: TOPIRAMATE 100MG TABLET PO SCH ×2 (08:38→20:50)
[2020-06-10] MEDS: LORAZEPAM 2MG/ML CPJ IV PRN ×4 (08:58→20:29)
[2020-06-10 11:26] LABS: BASOPHILS % 0.9 % (0.0-2.0); EOSINOPHILS % 0.8 % (0.0-5.0); MEAN CORPUSCULAR HEMOGLOBIN 33.3 pg (28.0-32.0); MEAN CORPUSCULAR VOLUME 97.2 fL (81.0-99.0); MEAN PLATELET VOLUME 8.5 fl (7.4-10.4); MONOCYTES % 9.8 % (2.0-8.0); NEUTROPHILS % 36.5 % (40.0-76.0); PLATELET 172 x1000/uL (130-400); RED BLOOD CELL COUNT 3.91 mill/uL (4.2-5.4); RED CELL DISTRIBUTION WIDTH 13.4 % (11.6-14.6)
[2020-06-10 11:32] LABS: CHLORIDE 111 mEq/L (98-107)
[2020-06-10 12:00] VITALS: BP 103/52
[2020-06-10 16:00] VITALS: BP 98/60
[2020-06-10 20:00] VITALS: BP 117/62
[2020-06-10] MEDS ORDERED: PHENYTOIN SODIUM EXTENDED 100MG CAPSULE PO SCH (21:00)
[2020-06-11] VITALS: BP 114/56
[2020-06-11 00:39] VITALS: BP 115/57
[2020-06-11] MEDS: LORAZEPAM 2MG/ML CPJ IV PRN (00:50)
[2020-06-11 01:06] VITALS: BP 115/57
== END 2020-06-11 01:23 | disposition short-term general hospital (02) | DRG 53 ==
LOC: ER 01:58 → 5WST 06:34 → ENRESERV 08:10 → 5WST 09:59
PROVIDERS: ADMIT Internal Medicine; ATTEND Internal Medicine
DX: G40.89 Other seizures (principal); R07.9 Chest pain, unspecified; S01.81XA Laceration without foreign body of other part of head, initial encounter; F17.200 Nicotine dependence, unspecified, uncomplicated; D64.9 Anemia, unspecified; W18.39XA Other fall on same level, initial encounter; Z88.6 Allergy status to analgesic agent; Z88.0 Allergy status to penicillin; Z88.2 Allergy status to sulfonamides; Z79.899 Other long term (current) drug therapy; Z95.0 Presence of cardiac pacemaker; Y93.89 Activity, other specified; Y92.89 Other specified places as the place of occurrence of the external cause; Y99.8 Other external cause status; Z90.49 Acquired absence of other specified parts of digestive tract; Z03.818 Encounter for observation for suspected exposure to other biological agents ruled out
CPT/HCPCS: 36415; 80053; 80185; 80305; 81003; 82962; 85025; 87635; 93005; 99285; J1650; J2060; J7040

== ENCOUNTER 2020-08-08 22:27 | Emergency (ER) | payer MEDICAID, OTHER ==
[~2020-08-08] VITALS: Ht 165.1 cm; Wt 54.0 kg
[2020-08-08] MEDS ORDERED: SODIUM CHLORIDE 0.9% 500 ML IV ONE (23:00)
[2020-08-08 23:28] VITALS: BP 120/66
== END 2020-08-09 00:42 | disposition left against medical advice (07) ==
LOC: ER 22:27
DX: G40.909 Epilepsy, unspecified, not intractable, without status epilepticus (principal); Z88.0 Allergy status to penicillin; Z88.2 Allergy status to sulfonamides; Z88.5 Allergy status to narcotic agent; Z60.2 Problems related to living alone; W10.8XXA Fall (on) (from) other stairs and steps, initial encounter; Y93.89 Activity, other specified; Y92.018 Other place in single-family (private) house as the place of occurrence of the external cause
CPT/HCPCS: 93005; 99283; J7040

== ENCOUNTER 2020-12-09 20:54 | Emergency (ER) | payer MEDICAID ==
[~2020-12-09] VITALS: Ht 162.6 cm; Wt 60.0 kg
[2020-12-09] MEDS ORDERED: LEVETIRACETAM 500MG PREMIX 100 ML IV ONE (21:15)
[2020-12-09] MEDS ORDERED: LORAZEPAM 2MG/ML CPJ IV PRN (21:15)
[2020-12-09] MEDS ORDERED: LEVETIRACETAM 100MG/ML ORAL SYR PO ONE (21:15)
[2020-12-09 23:15] VITALS: BP 129/63
== END 2020-12-10 00:05 | disposition left against medical advice (07) ==
LOC: ER 20:54
DX: G40.909 Epilepsy, unspecified, not intractable, without status epilepticus (principal); Z96.82 Presence of neurostimulator
CPT/HCPCS: 93005; 99284

== ENCOUNTER 2021-03-02 19:58 | Emergency (ER) | payer MEDICAID ==
[~2021-03-02] VITALS: Ht 157.5 cm; Wt 53.0 kg
[2021-03-02 21:21] LABS: BASOPHILS % 0.5 % (0.0-2.0); EOSINOPHILS % 0.3 % (0.0-5.0); HEMATOCRIT. 36.9 % (36.0-48.0); HEMOGLOBIN. 12.7 g/dL (12.0-16.0); LYMPHOCYTES % 32.9 % (20.0-50.0); MEAN CORPUSCULAR HEMOGLOBIN 34.1 pg (28.0-32.0); MEAN CORPUSCULAR VOLUME 98.9 fL (81.0-99.0); MEAN PLATELET VOLUME 8.6 fl (7.4-10.4); MONOCYTES % 8.6 % (2.0-8.0); NEUTROPHILS % 57.7 % (40.0-76.0); PLATELET 147 x1000/uL (130-400); RED BLOOD CELL COUNT 3.73 mill/uL (4.2-5.4); RED CELL DISTRIBUTION WIDTH 13.2 % (11.6-14.6)
[2021-03-02 21:28] LABS: CHLORIDE 108 mEq/L (98-107)
[2021-03-02 21:32] LABS: ETHANOL BLOOD < 10 mg/dL
[2021-03-02 21:55] LABS: CARBAMAZEPINE < 0.5 ug/mL (4-12); PHENOBARBITAL < 2.1 ug/mL (15.0-40.0); VALPROIC ACID < 3.0 ug/mL (50-100)
[2021-03-02] MEDS ORDERED: PHENYTOIN SODIUM 100MG/2ML VIAL IV ONE (23:30)
[2021-03-02 23:41] LABS: *AMPHETAMINES SCREEN URINE NEGATIVE (NEGATIVE); *BARBITURATES SCREEN URINE NEGATIVE (NEGATIVE); *COCAINE SCREEN URINE NEGATIVE (NEGATIVE); METHADONE URINE SCREEN NEGATIVE (NEGATIVE)
[2021-03-02 23:42] LABS: CANNABINOID URINE SCREEN NEGATIVE (NEGATIVE); OPIATES URINE SCREEN NEGATIVE (NEGATIVE); PHENCYCLIDINE URINE SCREEN NEGATIVE (NEGATIVE)
[2021-03-02 23:46] LABS: *BENZODIAZEPINES SCREEN URINE PRESUMTIVE POSITIVE (NEGATIVE)
[2021-03-03] VITALS: BP 110/65
[2021-03-03] MEDS ORDERED: PHENYTOIN SODIUM EXTENDED 100MG CAPSULE PO SCH (00:15)
== END 2021-03-03 00:59 | disposition home or self-care (01) ==
LOC: ER 19:58
DX: G40.909 Epilepsy, unspecified, not intractable, without status epilepticus (principal); I51.9 Heart disease, unspecified; Z95.0 Presence of cardiac pacemaker; Z91.14 Patient's other noncompliance with medication regimen; Z88.5 Allergy status to narcotic agent; Z88.2 Allergy status to sulfonamides; Z88.0 Allergy status to penicillin
CPT/HCPCS: 36415; 80053; 80156; 80165; 80184; 80185; 80305; 80320; 85025; 93005; 99284; G0480

== ENCOUNTER 2021-07-18 19:43 | Emergency (ER) | payer MEDICAID ==
[~2021-07-18] VITALS: Ht 160 cm; Wt 55.0 kg
[~2021-07-18 19:43] MED LIST changes: +CLON1TAB12 PO; -CLON1TAB23 PO; +DIAZ20SP; -ESLI400T PO; +ESLI800T PO; +PERA2TAB PO; -TAM75 PO; -TOPA25 PO; +TOPI25CA13 PO
[2021-07-18] MEDS: DEXTROSE 50% WATER 50ML SYRINGE IV ONE ×2 (20:15→20:20)
[2021-07-18] MEDS ORDERED: SODIUM CHLORIDE 0.9% 1,000 ML IV ONE (20:45)
[2021-07-18 20:58] LABS: BASOPHILS % 0.6 % (0.0-2.0); CHLORIDE 114 mEq/L (98-107); EOSINOPHILS % 1.5 % (0.0-5.0); HEMATOCRIT. 40.6 % (36.0-48.0); HEMOGLOBIN. 13.8 g/dL (12.0-16.0); LYMPHOCYTES % 49.4 % (20.0-50.0); MEAN CORPUSCULAR HEMOGLOBIN 33.5 pg (28.0-32.0); MEAN CORPUSCULAR VOLUME 98.7 fL (81.0-99.0); MEAN PLATELET VOLUME 9.2 fl (7.4-10.4); MONOCYTES % 8.4 % (2.0-8.0); NEUTROPHILS % 40.1 % (40.0-76.0); PLATELET 162 x1000/uL (130-400); RED BLOOD CELL COUNT 4.11 mill/uL (4.2-5.4); RED CELL DISTRIBUTION WIDTH 13.5 % (11.6-14.6)
[2021-07-18 21:01] LABS: CLARITY URINE CLEAR (CLEAR); COLOR URINE YELLOW (YELLOW); KETONES URINE NEGATIVE (NEGATIVE); LEUKOCYTE ESTERASE URINE TRACE (NEGATIVE); NITRITE URINE POSITIVE (NEGATIVE); OCCULT BLOOD URINE NEGATIVE (NEGATIVE); PROTEIN URINE NEGATIVE (NEGATIVE); SPECIFIC GRAVITY URINE 1.025 (1.005-1.030); UROBILINOGEN URINE 0.2 E.U./dL (0.2-1.0)
[2021-07-18 21:02] LABS: ETHANOL BLOOD < 10 mg/dL
[2021-07-18 21:08] LABS: PHENOBARBITAL < 2.1 ug/mL (15.0-40.0); VALPROIC ACID < 3.0 ug/mL (50-100)
[2021-07-18 21:09] LABS: CARBAMAZEPINE < 0.5 ug/mL (4-12)
[2021-07-18 21:12] LABS: *AMPHETAMINES SCREEN URINE NEGATIVE (NEGATIVE); *BARBITURATES SCREEN URINE NEGATIVE (NEGATIVE); *COCAINE SCREEN URINE NEGATIVE (NEGATIVE)
[2021-07-18 21:13] LABS: METHADONE URINE SCREEN NEGATIVE (NEGATIVE); OPIATES URINE SCREEN NEGATIVE (NEGATIVE); PHENCYCLIDINE URINE SCREEN NEGATIVE (NEGATIVE)
[2021-07-18 21:14] LABS: *BENZODIAZEPINES SCREEN URINE PRESUMTIVE POSITIVE (NEGATIVE); CANNABINOID URINE SCREEN PRESUMTIVE POSITIVE (NEGATIVE)
[2021-07-18] MEDS ORDERED: CIPR-263 MT (23:02)
[2021-07-18 23:33] VITALS: BP 101/54
== END 2021-07-19 00:09 | disposition left against medical advice (07) ==
LOC: ER 19:43
DX: G40.909 Epilepsy, unspecified, not intractable, without status epilepticus (principal); E16.2 Hypoglycemia, unspecified; N39.0 Urinary tract infection, site not specified; G40.812 Lennox-Gastaut syndrome, not intractable, without status epilepticus; Z95.0 Presence of cardiac pacemaker; Z88.2 Allergy status to sulfonamides; Z88.5 Allergy status to narcotic agent; Z91.011 Allergy to milk products; Z88.0 Allergy status to penicillin
CPT/HCPCS: 36415; 80053; 80156; 80165; 80184; 80185; 80305; 80320; 81003; 82962; 85025; 93005; 96360; 99284; J7030; G0480

== ENCOUNTER 2022-02-24 11:57 | Emergency (ER) | payer MEDICAID ==
[~2022-02-24] VITALS: Ht 160 cm; Wt 44.0 kg
[~2022-02-24 11:57] MED LIST changes: +CIPR-263 MT
[2022-02-24 13:10] LABS: BASOPHILS % 0.4 % (0.0-2.0); EOSINOPHILS % 0.3 % (0.0-5.0); MEAN CORPUSCULAR HEMOGLOBIN 33.2 pg (28.0-32.0); MEAN CORPUSCULAR VOLUME 97.7 fL (81.0-99.0); MEAN PLATELET VOLUME 8.6 fl (7.4-10.4); MONOCYTES % 8.2 % (2.0-8.0); NEUTROPHILS % 61.1 % (40.0-76.0); PLATELET 178 x1000/uL (130-400); RED CELL DISTRIBUTION WIDTH 12.6 % (11.6-14.6)
[2022-02-24 13:20] LABS: CHLORIDE 109 mEq/L (98-107)
[2022-02-24 13:24] LABS: HCG SCREEN NEGATIVE
[2022-02-24] MEDS ORDERED: PHENYTOIN SODIUM 1,000 MG in SODIUM CHLORIDE 0.9% 100 ML IV ONE (15:15)
[2022-02-24] MEDS ORDERED: PHENYTOIN SODIUM 1,000 MG in SODIUM CHLORIDE 0.9% 100 ML IV NR (16:00)
[2022-02-24 16:57] LABS: CLARITY URINE CLEAR (CLEAR); COLOR URINE DARK YELLOW (YELLOW); KETONES URINE TRACE (NEGATIVE); LEUKOCYTE ESTERASE URINE TRACE (NEGATIVE); NITRITE URINE POSITIVE (NEGATIVE); OCCULT BLOOD URINE NEGATIVE (NEGATIVE); PH URINE 5.5 (4.5-8.0); PROTEIN URINE 1+ (NEGATIVE); SPECIFIC GRAVITY URINE 1.033 (1.005-1.030)
[2022-02-24] MEDS ORDERED: CEFTRIAXONE 1 G PREMIX 50 ML IV ONE ×2 (17:00→20:45)
[2022-02-24] MEDS ORDERED: CEFP200T13 MT (18:38)
[2022-02-24] MEDS ORDERED: ONDANSETRON HCL 4MG/2ML INJ IV ONE ×2 (19:45→20:30)
[2022-02-24] MEDS ORDERED: KETOROLAC 30MG/ML VIAL IV ONE ×2 (19:45→20:30)
[2022-02-24] MEDS ORDERED: ACETAMINOPHEN 325MG TABLET PO ONE ×2 (19:45→20:30)
[2022-02-24 22:20] VITALS: BP 103/56
== END 2022-02-24 22:23 | disposition home or self-care (01) ==
LOC: ER 12:47
DX: N39.0 Urinary tract infection, site not specified (principal); R56.9 Unspecified convulsions; Z90.49 Acquired absence of other specified parts of digestive tract; Z79.899 Other long term (current) drug therapy; Z88.0 Allergy status to penicillin
CPT/HCPCS: 36415; 71045; 80053; 80185; 81003; 82140; 82962; 83880; 84484; 84703; 85025; 93005; 96365; 96367; 96375; 99285; J0696; J1165; J1885; J2405; J7050

== ENCOUNTER 2022-04-13 11:34 | Emergency (ER) | payer MEDICAID, OTHER ==
[~2022-04-13] VITALS: Ht 165.1 cm; Wt 65.0 kg
[~2022-04-13 11:34] MED LIST changes: +CEFP200T13 MT
[2022-04-13] MEDS ORDERED: PHENYTOIN SODIUM 1,000 MG in SODIUM CHLORIDE 0.9% 100 ML IV ONE (12:15)
[2022-04-13] MEDS ORDERED: SODIUM CHLORIDE 0.9% 1,000 ML IV ONE (12:30)
[2022-04-13 12:36] LABS: BASOPHILS % 0.4 % (0.0-2.0); EOSINOPHILS % 0.1 % (0.0-5.0); HEMATOCRIT. 41.4 % (36.0-48.0); LYMPHOCYTES % 16.1 % (20.0-50.0); MEAN CORPUSCULAR HEMOGLOBIN 33.2 pg (28.0-32.0); MEAN PLATELET VOLUME 8.8 fl (7.4-10.4); MONOCYTES % 10.6 % (2.0-8.0); NEUTROPHILS % 72.8 % (40.0-76.0); PLATELET 165 x1000/uL (130-400); RED BLOOD CELL COUNT 4.23 mill/uL (4.2-5.4); RED CELL DISTRIBUTION WIDTH 12.8 % (11.6-14.6)
[2022-04-13 12:45] LABS: CHLORIDE 108 mEq/L (98-107)
[2022-04-13 12:52] LABS: ETHANOL BLOOD < 10 mg/dL
[2022-04-13 16:00] VITALS: BP 141/73
[2022-04-13] MEDS ORDERED: ACETAMINOPHEN 325MG TABLET PO ONE (16:00)
== END 2022-04-13 16:44 | disposition home or self-care (01) ==
LOC: ER 11:40
DX: G40.909 Epilepsy, unspecified, not intractable, without status epilepticus (principal); R00.0 Tachycardia, unspecified; Z90.49 Acquired absence of other specified parts of digestive tract; Z88.5 Allergy status to narcotic agent; Z88.0 Allergy status to penicillin; Z88.2 Allergy status to sulfonamides; Z88.8 Allergy status to other drugs, medicaments and biological substances
CPT/HCPCS: 36415; 80053; 80185; 80320; 85025; 93005; 96365; 99284; J1165; J7030; J7050; G0480

== ENCOUNTER 2022-07-21 21:42 | Emergency (ER) | payer OTHER ==
[~2022-07-21] VITALS: Ht 160 cm; Wt 49.0 kg
[2022-07-21] MEDS ORDERED: ACETAMINOPHEN 325MG TABLET PO STA (22:07)
[2022-07-21] MEDS ORDERED: LORAZEPAM 2MG/ML CPJ IV ONE (22:15)
[2022-07-21] MEDS ORDERED: SODIUM CHLORIDE 0.9% 1,000 ML IV ONE (22:15)
[2022-07-21 22:54] LABS: BASOPHILS % 0.5 % (0.0-2.0); EOSINOPHILS % 2.1 % (0.0-5.0); HEMATOCRIT. 37.9 % (36.0-48.0); HEMOGLOBIN. 12.7 g/dL (12.0-16.0); LYMPHOCYTES % 39.6 % (20.0-50.0); MEAN CORPUSCULAR HEMOGLOBIN 32.7 pg (28.0-32.0); MEAN CORPUSCULAR VOLUME 97.8 fL (81.0-99.0); MEAN PLATELET VOLUME 8.7 fl (7.4-10.4); MONOCYTES % 8.8 % (2.0-8.0); PLATELET 140 x1000/uL (130-400); RED BLOOD CELL COUNT 3.87 mill/uL (4.2-5.4); RED CELL DISTRIBUTION WIDTH 13.3 % (11.6-14.6)
[2022-07-21 22:58] LABS: CHLORIDE 108 mEq/L (98-107)
[2022-07-21 23:05] LABS: ETHANOL BLOOD < 10 mg/dL
[2022-07-21] MEDS ORDERED: POTASSIUM CHLORIDE 20MEQ TABLET SR PO NR (23:30)
[2022-07-22] MEDS: ACETAMINOPHEN 325MG TABLET PO NR ×2 (00:22→01:56)
[2022-07-22] MEDS: PHENYTOIN SODIUM 1,000 MG in SODIUM CHLORIDE 0.9% 100 ML IV NR ×2 (00:23→01:56)
[2022-07-22] MEDS ORDERED: POTASSIUM CHLORIDE 20MEQ/PACKET PO ONE (01:00)
[2022-07-22] MEDS ORDERED: KETOROLAC 15MG/ML VIAL IV ONE (01:00)
[2022-07-22] MEDS ORDERED: PHEN100C4 MT (01:40)
[2022-07-22] MEDS ORDERED: IBUP-2028 MT (01:40)
[2022-07-22 05:53] VITALS: BP 94/45
== END 2022-07-22 02:20 | disposition home or self-care (01) ==
LOC: ER 21:42
DX: G40.812 Lennox-Gastaut syndrome, not intractable, without status epilepticus (principal); R53.1 Weakness; R51.9 Headache, unspecified; M79.18 Myalgia, other site; E87.6 Hypokalemia; Z91.14 Patient's other noncompliance with medication regimen
CPT/HCPCS: 36415; 70450; 80053; 80185; 80320; 85025; 96361; 96365; 96375; 99284; J1165; J1885; J2060; J7030; J7050; G0480

== ENCOUNTER 2022-07-22 21:44 | Emergency (ER) | payer OTHER ==
[~2022-07-22] VITALS: Ht 160 cm; Wt 42.0 kg
[~2022-07-22 21:44] MED LIST changes: +IBUP-2028 MT; +PHEN100C4 MT
[2022-07-22 21:46] VITALS: BP 135/74
== END 2022-07-23 04:06 | disposition left against medical advice (07) ==
LOC: ER 21:44
DX: Z53.21 Procedure and treatment not carried out due to patient leaving prior to being seen by health care provider (principal)

== ENCOUNTER 2022-07-23 08:01 | Emergency (ER) | payer OTHER ==
[~2022-07-23] VITALS: Ht 160 cm; Wt 41.0 kg
[2022-07-23] MEDS ORDERED: ACETAMINOPHEN 650MG/20.3ML UDC PO ONE ×2 (09:00→10:15)
[2022-07-23 09:28] VITALS: BP 127/78
[2022-07-23] MEDS ORDERED: ACETAMINOPHEN 650MG/20.3ML UDC PO SCH (11:00)
== END 2022-07-23 08:57 | disposition home or self-care (01) ==
LOC: ER 08:01
DX: M25.571 Pain in right ankle and joints of right foot (principal); Z88.0 Allergy status to penicillin; Z88.6 Allergy status to analgesic agent; Z88.9 Allergy status to unspecified drugs, medicaments and biological substances; Z88.8 Allergy status to other drugs, medicaments and biological substances; Z79.899 Other long term (current) drug therapy; Z90.49 Acquired absence of other specified parts of digestive tract; Z98.890 Other specified postprocedural states; Z86.59 Personal history of other mental and behavioral disorders
CPT/HCPCS: 73590; 73610; 73630; 99284

== ENCOUNTER 2024-01-12 14:22 | Emergency (ER) | payer MEDICAID, OTHER ==
[~2024-01-12] VITALS: Ht 157.5 cm; Wt 50.0 kg
[~2024-01-12 14:22] MED LIST changes: -CEFP200T13 MT; -CIPR-263 MT; -IBUP-2028 MT; +PHEN100C12 PO; +PHEN300C6 MT
[2024-01-12 14:24] VITALS: O2SAT 99
[2024-01-12 16:01] LABS: BASOPHILS % 0.6 % (0.0-2.0); EOSINOPHILS % 0.2 % (0.0-5.0); HEMATOCRIT. 40.3 % (36.0-48.0); HEMOGLOBIN. 13.7 g/dL (12.0-16.0); LYMPHOCYTES % 46.1 % (20.0-50.0); MEAN CORPUSCULAR HEMOGLOBIN 32.3 pg (28.0-32.0); MEAN CORPUSCULAR VOLUME 94.9 fL (81.0-99.0); MEAN PLATELET VOLUME 9.1 fl (7.4-10.4); MONOCYTES % 13.3 % (2.0-8.0); NEUTROPHILS % 39.8 % (40.0-76.0); PLATELET 145 x1000/uL (130-400); RED BLOOD CELL COUNT 4.24 mill/uL (4.2-5.4); RED CELL DISTRIBUTION WIDTH 13.3 % (11.6-14.6)
[2024-01-12 16:07] LABS: ACETAMINOPHEN < 2 ug/mL (10-30); ALANINE AMINOTRANSFERASE 10 IU/L (10-49); ALBUMIN 4.7 g/dL (3.2-4.8); ASPARTATE AMINOTRANSFERASE 23 IU/L (<34); BILIRUBIN TOTAL 0.3 mg/dL (0.1-1.0); CALCIUM 8.7 mg/dL (8.7-10.4); CARBON DIOXIDE 22 mEq/L (21-32); CHLORIDE 107 mEq/L (98-107); CREATININE 0.5 mg/dL (0.6-1.0); GLUCOSE 78 mg/dL (70-105); POTASSIUM 3.5 mEq/L (3.5-5.1); PROTEIN TOTAL 7.9 g/dL (6.0-8.3); SODIUM 136 mEq/L (136-145); THYROID STIMULATING HORMONE 1.92 uIU/mL (0.55-4.78); UREA NITROGEN BLOOD 11 mg/dL (9-23)
[2024-01-12 16:11] LABS: HCG SCREEN NEGATIVE
[2024-01-12 16:17] LABS: ETHANOL BLOOD < 10 mg/dL (<10)
[2024-01-12 19:31] LABS: CLARITY URINE CLEAR (CLEAR); COLOR URINE YELLOW (YELLOW); GLUCOSE URINE NEGATIVE (NEGATIVE); KETONES URINE 4+ (NEGATIVE); LEUKOCYTE ESTERASE URINE NEGATIVE (NEGATIVE); NITRITE URINE POSITIVE (NEGATIVE); OCCULT BLOOD URINE TRACE (NEGATIVE); PROTEIN URINE TRACE (NEGATIVE); SPECIFIC GRAVITY URINE 1.019 (1.005-1.030); UROBILINOGEN URINE 0.2 E.U./dL (0.2-1.0)
[2024-01-12 19:44] LABS: *AMPHETAMINES SCREEN URINE NEGATIVE (NEGATIVE); *BARBITURATES SCREEN URINE PRESUMPTIVE POSITIVE (NEGATIVE); *BENZODIAZEPINES SCREEN URINE NEGATIVE (NEGATIVE); *COCAINE SCREEN URINE NEGATIVE (NEGATIVE); BACTERIA URINE 3+; CANNABINOID URINE SCREEN NEGATIVE (NEGATIVE); ECSTASY MDMA SCREEN URINE NEGATIVE (NEGATIVE); METHADONE URINE SCREEN Neg (NEGATIVE); OPIATES URINE SCREEN NEGATIVE (NEGATIVE); PHENCYCLIDINE URINE SCREEN NEGATIVE (NEGATIVE); RBC URINE 0-2 /hpf (0-2); SQUAMOUS EPITHELIAL CELL URINE FEW /lpf (RARE/1+); WBC URINE 0-2 /hpf (0-2)
[2024-01-12] MEDS: PHENYTOIN SODIUM EXTENDED 100MG CAPSULE PO ONE (22:34)
[2024-01-12] MEDS: ONDANSETRON 4MG ODT PO ONE (22:34)
[2024-01-12] MEDS: CLONAZEPAM 1MG TABLET PO ONE (22:34)
[2024-01-13 06:21] VITALS: TEMP 98.6
[2024-01-13 11:09] VITALS: BP 116/74; PULSE 74; RESP 18
== END 2024-01-13 11:57 | disposition home or self-care (01) ==
LOC: ER 14:22
DX: R45.851 Suicidal ideations (principal); K21.9 Gastro-esophageal reflux disease without esophagitis; Z90.49 Acquired absence of other specified parts of digestive tract; Z98.51 Tubal ligation status; Z79.899 Other long term (current) drug therapy; Z20.822 Contact with and (suspected) exposure to COVID-19
CPT/HCPCS: 80053; 80305; 81003; 80307; 80329; 80320; 84703; 84443; 85025; 36415; 71045; 99285; 87426; Q0162; G0480